=== PATIENT | male | born 1950 | race Caucasian/White ===

== ENCOUNTER 2020-12-03 13:29 | Outpatient (CLI) | payer MEDICARE, SELFPAY ==
--- NOTE | ~2020-12-03 | CT_ITS ---
EXAMINATION: CT soft tissue neck chest w DATE: 12/03/2020 14:42 INDICATION: Dystonia. TECHNIQUE: Computed tomography (CT) of the neck and chest was performed with 75 mL Omnipaque-350 intr avenous contrast. Automated exposure control and iterative reconstruction technique were employed. Th e dose-length product was 942.06 mGy-cm. COMPARISON: CT abdomen and pelvis 03/10/11 FINDINGS: NECK CT: There are calcifications in the palatine tonsils. There are no pathologically enlarged lymph nodes. There is left-sided vocal cord paralysis. There is mild plaque in the proximal internal carot id arteries with 0% stenosis relative to normal distal artery lumen diameters. There is severe cervic al spondylosis. CHEST CT: There is mild emphysema. There is mild scarring at the lung apices. There is mild dependent atelectasis bilaterally. There is a 15 mm nodule in left lung upper lobe, consistent with primary br onchogenic carcinoma. There is left hilar and mediastinal lymphadenopathy with stenosis of the left u pper lobe pulmonary arteries. A prevascular ron mass measures 4.6 x 3.1 cm. An enlarged node in the aorticopulmonary window measures 2.6 x 1.8 cm. There are cysts in the liver measuring up to 6 mm. Th ere is mild thoracic spondylosis. IMPRESSION: 1. Left lung upper lobe nodule and left hilar and mediastinal lymphadenopathy, consistent with primar y bronchogenic carcinoma and ron metastatic disease. Consider either bronchoscopy or CT-guided biop sy for diagnosis. 2. Left-sided vocal cord paralysis secondary to mediastinal lymphadenopathy. Reviewed, dictated and finalized at location B. Y OPERATOR IMPRESSION: 1. Left lung upper lobe nodule and left hilar and mediastinal lymphadenopathy, consistent with primary bronchogenic carcinoma and ron metastatic disease. Co nsider either bronchoscopy or CT-guided biopsy for diagnosis. 2. Left-sided vocal cord paralysis secondary to mediastinal lymphadenopathy.
[2020-12-03 14:25] LABS: Estimated Glomerular Filt Rate > 60
== END 2020-12-03 13:30 | disposition home or self-care (01) ==
PROVIDERS: PCP Internal Medicine; Visit Provider Otolaryngology
DX: J38.01 Paralysis of vocal cords and larynx, unilateral (principal); R49.0 Dysphonia; R91.8 Other nonspecific abnormal finding of lung field
CPT/HCPCS: 70491; 71260; Q9967

== ENCOUNTER 2021-10-13 15:54 | Emergency (ER) | payer MEDICARE, SELFPAY ==
--- NOTE | 2021-10-13 16:17 | PC.NURSE ---
Patient son arrives at this time. Patient son asked when the patient will be going back. I informed him that we are currently on a wait, and will get him back as soon as we can, but it will be awhile. I informed him the patient is not yet been triaged and we will place him accordingly in line to be seen. Patient son did not like this answer, and reported he would be taking him elsewhere. Patient and son ambulated from ED. No distress noted in patient at time of ambulation from ED.
== END 2021-10-13 16:17 | disposition left against medical advice (07) ==
LOC: ANHED 16:34
PROVIDERS: PCP Internal Medicine
DX: Z53.21 Procedure and treatment not carried out due to patient leaving prior to being seen by health care provider (principal)
CPT/HCPCS: 99199